=== PATIENT | female | born 1975 ===

== ENCOUNTER 2025-01-20 05:22 | Day surgery (SDC) | payer OTHER ==
[2025-01-10 12:47] VITALS: BP 112/71
[~2025-01-20] VITALS: Ht 162.6 cm; Wt 49.9 kg
[~2025-01-20 05:22] MED LIST: CLONAZEPAM0.5 MG PO
[2025-01-20] MEDS ORDERED: METRONIDAZOLE/SODIUM CHLORIDE 500 MG/100 ML PIGGYBACK IV ONE (10:15)
[2025-01-20] MEDS ORDERED: DIBUCAINE 30 GM TUBE RECTAL ONE (10:15)
[2025-01-20] MEDS ORDERED: HEMOSTATIC MATRIX 1 KIT KIT TOP ONE (10:15)
[2025-01-20] MEDS ORDERED: CEFTRIAXONE SODIUM 2,000 MG VIAL IV ONE (10:15)
[2025-01-20] MEDS ORDERED: BUPIVACAINE HCL 30 ML VIAL IJ ONE (10:15)
[2025-01-20] MEDS ORDERED: LIDOCAINE HCL 1%/EPINEPHRINE 20ML VIAL IJ ONE (10:15)
[2025-01-20] MEDS ORDERED: INTESTINEX680 M1 PO (11:26)
[2025-01-20] MEDS ORDERED: NEURONTIN300 MG PO (11:26)
[2025-01-20] MEDS ORDERED: PERCOCET 5-3251 EACH PO (11:26)
[2025-01-20] MEDS ORDERED: CELECOXIB200 MG PO (11:26)
[2025-01-20] MEDS ORDERED: MORPHINE SULFATE 4 MG/ML VIAL IV ONE (11:40)
== END 2025-01-20 13:35 | disposition home or self-care (01) ==
LOC: CIR.AMB 05:22
PROVIDERS: ATTEND Surgery
DX: K60.321 Anal fistula, complex, initial (principal)

== ENCOUNTER 2025-05-26 06:00 | Day surgery (SDC) | payer OTHER ==
[2025-05-20 12:22] VITALS: BP 100/66
[~2025-05-26] VITALS: Ht 162.6 cm; Wt 49.9 kg
[~2025-05-26 06:00] MED LIST changes: +BUSPAR; +CELECOXIB200 MG PO; +INTESTINEX680 M1 PO; +NEURONTIN300 MG; +NEURONTIN300 MG PO; +PERCOCET 5-3251 EACH PO
[2025-05-26] MEDS ORDERED: HEMOSTATIC MATRIX 1 KIT KIT TOP ONE ×2 (06:52→07:15)
[2025-05-26] MEDS ORDERED: DIBUCAINE 30 GM TUBE ONE (06:52)
[2025-05-26] MEDS ORDERED: METRONIDAZOLE/SODIUM CHLORIDE 500 MG/100 ML PIGGYBACK IV ONE ×2 (06:53→07:15)
[2025-05-26] MEDS ORDERED: POVIDONE-IODINE 118 ML BOTT TOP ONE ×2 (06:53→07:15)
[2025-05-26] MEDS ORDERED: LIDOCAINE HCL 1%/EPINEPHRINE 20ML VIAL IJ ONE ×2 (06:53→07:15)
[2025-05-26] MEDS ORDERED: BUPIVACAINE HCL/MPF 0.5% 30ML VIAL ONE (06:53)
[2025-05-26] MEDS ORDERED: CEFTRIAXONE SODIUM 2,000 MG VIAL ONE (06:53)
[2025-05-26] MEDS ORDERED: BUPIVACAINE HCL 30 ML VIAL IJ ONE (07:15)
[2025-05-26] MEDS ORDERED: DIBUCAINE 30 GM TUBE RECTAL ONE (07:15)
[2025-05-26] MEDS ORDERED: CEFTRIAXONE SODIUM 2,000 MG VIAL IV ONE (07:15)
[2025-05-26] MEDS ORDERED: CELECOXIB200 MG PO (08:47)
[2025-05-26] MEDS ORDERED: INTESTINEX680 M1 PO (08:48)
[2025-05-26] MEDS ORDERED: NEURONTIN300 MG PO (08:48)
[2025-05-26] MEDS ORDERED: PERCOCET 5-3251 EACH PO (08:48)
== END 2025-05-26 15:40 | disposition home or self-care (01) ==
LOC: CIR.AMB 06:00
PROVIDERS: ATTEND Surgery
DX: K60.322 Anal fistula, complex, persistent (principal); K62.3 Rectal prolapse